=== PATIENT | male | born 1965 | race Caucasian/White ===

== ENCOUNTER 2021-04-10 12:05 | Outpatient (REF) | payer OTHER, SELFPAY ==
--- NOTE | ~2021-04-10 | XR_ITS ---
EXAMINATION: XR TIBIA AND FIBULA, LEFT CLINICAL INFORMATION: Injury lower leg COMPARISON: Radiographs left ankle and foot 07/15/2013. TECHNIQUE: AP and lateral views of the left tibia and fibula were obtained. FINDINGS: There is no fracture, dislocation, or destructive process. Bony mineralization is normal. There is no periostitis. No knee joint compartment narrowing. Ankle joint unremarkable. No visible ankle capsular effusion. XR/XR tibia fibula LT 2V IMPRESSION: No fracture, dislocation, or destructive process.
== END 2021-04-10 12:06 | disposition home or self-care (01) ==
LOC: HO.HMGCX 12:05
PROVIDERS: Visit Provider Physician Assistant Medical
DX: S89.92XA Unspecified injury of left lower leg, initial encounter (principal); X58.XXXA Exposure to other specified factors, initial encounter; Y93.9 Activity, unspecified; Y92.9 Unspecified place or not applicable; Y99.9 Unspecified external cause status
CPT/HCPCS: 73590

== ENCOUNTER 2024-08-10 10:56 | Outpatient (AMB) | payer OTHER, SELFPAY ==
--- NOTE | 2024-08-10 11:22 | AM.OFFWIN_ITS ---
Intake Vital Signs 08/10/24 11:24 Weight 160 lb BP 180/100 H Blood Pressure Location Lt brachial Position Sitting Pulse 71 Pulse Source Pulse Oximeter Temp 98.0 F Temp Source Oral Pulse Oximetry (%) 97 Oxygen Delivery Method Room Air Intake Visit Reasons: [employer]ABITAT [employer]SERVATION [employer]NER-high BP 200 over 110 Intake Note: Patient here for elevated BP Patient Tobacco Use Status: Current everyday Tobacco user Allergies Penicillins [PCN] Allergy (Unknown, Unverified 08/10/24 11:25) SWELLING/RASH Do you need a note to return to daycare/school/sports/work: No HPI HPI Comments History of Present Illness Details History of Present Illness - The patient is a 58-year-old male pres enting with elevated blood pressure. - Reports initial elevated blood pressur e during an urgent care visit at an urgent care down the street on July 11, post hospital discharge for a fall- related rib fracture. - Was started on amlodipine 5 mg daily; however, he continues to experience headaches, correlating them to uncontrolled hypertension. He went back for a follow up at the urgent care [place] the [place] but provider wasn't there and he felt insulted and dismissed by the doctor so he left. - Blood pressure remains elevated today at 180/100 despite taking 5mg amlodipine daily, includng this morning. - He has not been routinely checking his blood pressure at home since starting treatment. - Patient acknowledges ongoing smoking, contributing to hypertension, and has implemented a low salt diet recently. - No primary healthcare provider current ly, dissatisfaction reported with recent urgent care interaction. - He admits to constant headache, denies chest pain or dizziness or lightheadedness. Physical Exam General: Cooperative, healthy appearing, comfortable, no acute distress and well developed Orientation: Patient oriented x3 Limitations: No limitations Head: Normal to inspection Ears: Hearing grossly normal bilaterally Nose: Normal external nose present Face and sinus: Normal facial exam Eyes: Appearance normal, both eyes and all related structures Neck: Normal visual inspection and Yes full ROM Respiratory: Normal respiratory effort and able to speak in complete sentences. Skin: No rashes or lesions noted Neuro: Patient oriented x3 Extremities: Normal to inspection [facility] Social History Patient Tobacco Use Status: Current everyday Tobacco user Review of Systems Const All systems reviewed & are unremarkable except as noted in HPI and below Physical Exam Vital Signs: Last Vital Signs Temp 98.0 F 08/10/24 11:24 Pulse 71 08/10/24 11:24 BP 180/100 H 08/10/24 11:24 Pulse Ox 97 08/10/24 11:24 Oxygen Delivery Method Room Air 08/10/24 11:24 Assessment & Plan Assessment & Plan (1) Elevated blood pressure reading in office without diagnosis of hypertension: Code(s): R03.0 - Elevated blood-pressure reading, without diagnosis of hypertension Plan: Plan The patient's elevated blood pressure management involved the adjustment of his amlodipine dosage to 10 mg daily as a temporary measure and immediate monitoring of blood pressure using a home device. Emergency care (ED PAMELA, 911) was recommended to address the potential hypertensive crisis and stroke risks, kidney damage, etc. Patient refused to go to ED or to have me call 911; risks and benefits explained to pt at length, up to and including or permanent disability. Pt still declined emergency medical attention; AMA form signed. Lifestyle advice included smoking cessation and adherence to a low-sodium diet. The patient was scheduled for a follow-up appointment with a primary care provider to ensure continued oversight and management of hypertension. I have made an appt for him at [facility] on Aug 13 at 11:20AM with Ashly Acosta PA-C in [place], pt given information and was told to record BPs twice daily and bring to appt. Patient was informed and verbally consented to the use of an ambient scribe for clinic note documentation during this visit. Coding Level of Care Code Est Pt Level 4 (72862) Diagnoses Elevated blood pressure reading in office without diagnosis of hypertension R03.0
[2024-08-10 11:24] VITALS: BP 180/100; PULSE 71; TEMP 36.7; O2SAT 97
== END 2024-08-10 11:56 | disposition home or self-care (01) ==
PROVIDERS: PCP Internal Medicine; Visit Provider Physician Assistant
DX: R03.0 Elevated blood-pressure reading, without diagnosis of hypertension (principal)

== ENCOUNTER → 2024-08-13 11:02 | Outpatient (BNVA) | payer OTHER, SELFPAY | PROVIDERS: PCP Internal Medicine; Visit Provider Physician Assistant Medical | DX: I10 Essential (primary) hypertension (principal); Z79.899 Other long term (current) drug therapy | CPT/HCPCS: 96127 ==

== ENCOUNTER 2024-08-17 10:47 | Outpatient (REF) | payer OTHER, SELFPAY ==
[2024-08-17 13:12] LABS: MANUAL DIFF FLAG NO
[2024-08-17 13:26] LABS: Basophils Percent Auto 0.6 % (0-2); Eosinophils Absolute Auto 0.1 X10*3/uL (0.0-0.4); Eosinophils Percent Auto 1.4 % (0-4); Hematocrit 48.1 % (42.0-52.0); Hemoglobin 16.4 g/dl (14.0-18.0); Imm Gran Abs Auto 0.02 X10*3/uL (0.00-0.03); Imm Gran Pct Auto 0.3 % (0.0-0.4); Lymphocytes Absolute Auto 1.8 X10*3/uL (1.2-4.9); Lymphocytes Percent Auto 24.9 % (20-40); Mean Corpuscular HGB Conc 34.1 g/dl (31.0-36.0); Mean Corpuscular Hemoglobin 31.2 pg (27.0-33.0); Mean Corpuscular Volume 91.6 fL (80.0-98.0); Mean Platelet Volume 10.1 fL (9.4-12.4); Monocytes Absolute Auto 0.5 X10*3/uL (0.1-1.2); Monocytes Percent Auto 7.5 % (2-11); Neutrophils Absolute Auto 4.6 x10*3/uL (2.0-8.3); Neutrophils Percent Auto 65.3 % (45-73); Platelet Count 230 X10*3/uL (160-400); Red Blood Count 5.25 X10*6/uL (4.60-5.80); Red Cell Distribution Width 13.1 % (11.0-16.0)
[2024-08-17 13:38] LABS: Estimated Average Glucose 108 mg/dL; Hemoglobin A1C 147.8087 umol/L; Hemoglobin A1c % 5.4 % (<6.0); Total Hemoglobin (HGBA1C) 4193.6156 umol/L
[2024-08-17 13:41] LABS: Alanine Aminotransferase 31 U/L (0-40); Albumin Level 4.9 g/dL (3.5-5.0); Alkaline Phosphatase 77 U/L (39-117); Anion Gap 12 (12-20); Aspartate Amino Transferase 27 U/L (5-37); Bilirubin Direct 0.2 mg/dL (0.0-0.5); Bilirubin Total 0.8 mg/dL (0.0-1.0); Blood Urea Nitrogen 17 mg/dL (9-16); Calcium 9.5 mg/dL (8.4-10.2); Carbon Dioxide 28 mmol/L (22-29); Chloride 102 mmol/L (96-108); Cholesterol 178 mg/dL (<200); Estimated Glomerular Filt Rate > 60; Glucose Fasting 107 mg/dL (60-99); HDL Cholesterol 79 mg/dL (>40); LDL Cholesterol Calculated 89 mg/dL (<100); Magnesium 2.2 mg/dL (1.6-2.6); Potassium 4.3 mmol/L (3.3-5.1); Sodium 138 mmol/L (135-145); Total Protein 8.1 g/dL (6.5-8.0); Triglycerides 52 mg/dL (<150)
[2024-08-17 13:53] LABS: PSA,Total (Free>4and<10) 0.68 ng/mL (0.00-4.00)
[2024-08-17 14:07] LABS: Folate 5.7 ng/mL (> or = 4.0); Vitamin B12 426 pg/mL (200-900)
[2024-08-17 14:11] LABS: TSH reflex Free T4 0.63 uIU/mL (0.32-4.0); Vitamin D 25-OH Total 15.7 ng/mL (>30)
[2024-08-18 18:13] LABS: Lyme Abs Screen <0.90 index
[2024-08-23 13:08] LABS: Testosterone, Total 624 ng/dL (250-1100)
== END 2024-08-17 10:48 | disposition home or self-care (01) ==
LOC: HO.HMGCLDS 10:47
PROVIDERS: PCP Internal Medicine; Visit Provider Physician Assistant Medical
DX: Z00.00 Encounter for general adult medical examination without abnormal findings (principal); Z12.5 Encounter for screening for malignant neoplasm of prostate; Z13.1 Encounter for screening for diabetes mellitus; Z13.220 Encounter for screening for lipoid disorders; Z13.0 Encounter for screening for diseases of the blood and blood-forming organs and certain disorders involving the immune mechanism
CPT/HCPCS: 36415; 80053; 80061; 80076; 82248; 82306; 82607; 82746; 83036; 83735; 84153; 84403; 84443; 85025; 86617; 86618

== ENCOUNTER 2024-08-31 08:01 | Outpatient (AMB) | payer OTHER, SELFPAY ==
--- NOTE | 2024-08-31 08:21 | MHC.OFFVIS ---
Vital Signs 08/31/24 08:23 Height 5 ft 2 in Weight 146 lb BMI 26.7 Pulse 72 Pulse Source Pulse Oximeter Pulse Oximetry (%) 98 Oxygen Delivery Method Room Air Intake Visit Reasons: INP-Apnea Intake Note: Initiate workup for potential sleep apnea given historical breathing patterns during sleep, scheduling a sleep study for confirmation. No Sleep Study Scheduled Allergies Penicillins [PCN] Allergy (Unknown, Unverified 08/31/24 08:23) SWELLING/RASH HPI Comments Details: 58 year old male referred to us for sleep evaluation. Jun 2024, He fell down the stairs and into the bushes at his home, was taken to [facility], where he had a complete work up, and xrays showed he fractured rib #11. He is being monitored by his PCP for HTN, he was started on Amlodipine and HCTZ, pressures improved and daily headaches are now minimal. He goes to bed at 8pm, and wakes up at 10pm, midnight, then 2am, with 2-3 bathroom breaks. He c/o snoring, gasping and choking as if he is unable to catch his breath per his . He works in a [employer] center and feels unsteady on his feet. He says he has RLS, his legs bounce, he gets up to stretch them and moves all night long as he tosses and turns. He has numbness and tingling bilaterally which goes away with movement of the legs. His blood pressure has been elevated will have a check with his primary today, it was 128/89 this AM. He drinks 2-3 bottles of water a night, he has dry mouth. He has not smoked in 15 days now, and has been cutting back on his alcohol consumption. Will monitor for drop attacks, in June he fell down and hit a coffee table and sustained a laceration to the r. ear, his thinks he passed out for a few seconds, did not bite his tongue or experience incontinence. [facility] Medical History Heart rate fast Vitamin D deficiency Hypertension Episode of apnea General medical exam Surgical History Hx of appendectomy Social History Housing: Other (Mobile Home) Patient Tobacco Use Status: Current everyday Tobacco user e-Cigarette/Vaping Use: Never Used service: Yes ([employer] ) Current occupational status: employed Current occupational exposures/hazards: No Cognitive needs: No Hearing needs: No Vision needs: No Review of Systems Const All systems reviewed & are unremarkable except as noted in HPI and below Physical Exam Vital Signs: Last Vital Signs Pulse 72 08/31/24 08:23 Pulse Ox 98 08/31/24 08:23 Oxygen Delivery Method Room Air 08/31/24 08:23 BMI result Body Mass Index 26.7 Const General: cooperative, comfortable and no acute distress Nutritional Appearance: average body habitus Orientation/consciousness: patient oriented x3 HEENT Face and sinus: Yes normal facial exam and Yes face symmetric Throat: Yes other ([place] score of 4) Eyes Pupils: Equal, round and reactive pupils present Neck Neck: Yes full ROM and Yes supple Resp Effort & Inspection: normal respiratory effort and able to speak in complete sentences Neuro General: patient oriented x3 and moves all extremities Cranial nerves: Yes CN's II-XII intact bilaterally, Yes Facial sensation intact/muscles of mastication intact, Yes Equal, round and reactive pupils present, Yes Normal accommodation reflex present, Yes Bilaterally intact EOM present, Yes Nystagmus not present, Yes Normal facial strength present, Yes Midline tongue present, Yes Symmetric palate elevation present, Yes Ability to bilaterally rotate head present and Yes Ability to bilaterally elevate shoulders present Cognition (Neuro): normal cognition Gait exam (Neuro): Normal gait present Motor exam (neuro): 5/5 motor strength present throughout and Normal motor muscle tone present throughout Deep tendon reflexes (DTR's): Right triceps reflex intensity grade: 2+, Left triceps reflex intensity grade: 2+, Rt Biceps (C5, C6): 2+, Left biceps reflex intensity grade: 2+, Right brachioradialis reflex intensity grade: 2+, Left brachioradialis reflex intensity grade: 2+, Right patellar reflex intensity grade: 2+ and Left patellar reflex intensity grade: 2+ Psych Thought process: Normal thought process present Thought content: Normal thought content present Assessment & Plan Assessment & Plan (1) Restless leg syndrome, uncontrolled: Code(s): G25.81 - Restless legs syndrome Category: Medical (2) Loud snoring: Code(s): R06.83 - Snoring Category: Medical (3) Gasping for breath: Code(s): R06.89 - Other abnormalities of breathing Category: Medical (4) Fatigue due to sleep pattern disturbance: Code(s): R53.83 - Other fatigue; G47.9 - Sleep disorder, unspecified Category: Medical Plan Snoring and Gasping for breath, will evaluate with HST. RLS started 100-200mg PO Gabapentin at bedtime. Start 400mg PO Magnesium, and 200mg PO B6 at bedtime. Orders: Orders RT home sleep study Today G47.19 - Other hypersomnia Medications: New gabapentin Take 1-2 capsules daily at bedtime for Restless Legs. 100 mg PO BEDTIME 90 days 180 caps 3RF MDD 200mg G25.81 - Restless legs syndrome pyridoxine (vitamin B6) 250mg PO daily at bedtime for Restless leg syndrome. 250 mg PO DAILY 90 days 90 tabs 1RF Restless legs Syndrome MDD 250mg G25.81 - Restless legs syndrome magnesium oxide Take one capsule daily at night. 400 mg PO DAILY 90 days 90 caps 1RF Sleep MDD 400mg G47.9 - Sleep disorder, unspecified, R53.83 - Other fatigue Patient Instructions: Sleep Hygiene Provided: Sleep in a dark and cool environment, no devices in bed. Limit water intake 2 hours prior to bedtime, may use a humidifier as needed to increase moisture in the room. Smoking Cessation continue seeking assurance and support with counseling as needed. HTN, the number is modifiable RF for CV events is good blood pressure control. Monitor BP daily. Headache monitor frequency and severity of headaches, will address at next visit. Coding Level of Care Code New Pt Level 4 (83572) Diagnoses Restless leg syndrome, uncontrolled G25.81 Loud snoring R06.83 Gasping for breath R06.89 Fatigue due to sleep pattern disturbance R53.83; G47.9 Time Spent (min) 30 Comment Evalutation of Baseline Sleep Questionnaire Difficulty falling asleep: No Difficulty staying asleep?: Yes Number of arousals: 4-5 Snoring: Yes Witnessed apneas: Yes Gasping arousals: Yes Nocturia: Yes GERD: Yes Vivid dreams: Yes (His 3 month old son past in 1990.) Acting out dreams: No Abnormal behavior in sleep: Yes (sleep talking ) Abnormal movements in sleep: No Morning headaches: No Excessive daytime sleepiness: No Daytime naps: No Restless legs: Yes Hallucinations: No Sleep paralysis: No Drop attacks: Yes Sleep Study: Yes (18 years ago) CPAP: No
[2024-08-31 08:23] VITALS: PULSE 72; O2SAT 98; BMI 26.7
== END 2024-08-31 09:01 | disposition home or self-care (01) ==
PROVIDERS: PCP Internal Medicine; Visit Provider Physician Assistant Medical
DX: G25.81 Restless legs syndrome (principal); R06.83 Snoring; R06.89 Other abnormalities of breathing; R53.83 Other fatigue; G47.9 Sleep disorder, unspecified
CPT/HCPCS: 99204

== ENCOUNTER → 2024-08-31 08:01 | Outpatient (BNVA) | payer OTHER, SELFPAY | PROVIDERS: PCP Internal Medicine; Visit Provider Physician Assistant Medical ==

== ENCOUNTER 2024-08-31 12:36 | Outpatient (AMB) | payer OTHER, SELFPAY ==
--- NOTE | 2024-08-31 12:38 | MHC.PC.OV ---
Vital Signs 08/31/24 12:49 Height 5 ft 1.5 in Weight 143 lb BMI 26.6 BP 182/90 H Blood Pressure Location Lt brachial Pulse 81 Pulse Source Pulse Oximeter Temp 98.4 F Pulse Oximetry (%) 98 Intake Visit Reasons: 2 week follow up Intake Note: no other issues Allergies Penicillins [PCN] Allergy (Unknown, Verified 08/31/24 13:21) SWELLING/RASH Medication List - Last Reconciled 08/31/24 by Ashly Acosta PA-C amlodipine 10 mg PO DAILY cholecalciferol (vitamin D3) 1,250 mcg PO QWEEK 3 months gabapentin 100 mg PO BEDTIME 90 days MDD 200mg hydrochlorothiazide 50 mg PO DAILY ibuprofen mg PO Q6-8H ipratropium-albuterol 20-100 mcg/actuation (Combivent Respimat) 1 puff inhalation Q6H magnesium oxide 400 mg PO DAILY 90 days MDD 400mg nicotine (Nicoderm CQ) 1 patch transdermal DAILY pyridoxine (vitamin B6) 250 mg PO DAILY 90 days MDD 250mg Tobacco use date assessed: 08/13/24 Dental Screening Dental Screen Date: 08/13/24 [facility] Medical History COPD (chronic obstructive pulmonary disease) Heart rate fast Vitamin D deficiency Hypertension Episode of apnea General medical exam Surgical History Hx of appendectomy Social History Housing: Other (Mobile Home) Patient Tobacco Use Status: Current everyday Tobacco user e-Cigarette/Vaping Use: Never Used service: Yes ([employer] ) Current occupational status: employed Current occupational exposures/hazards: No Cognitive needs: No Hearing needs: No Vision needs: No Questionnaire Thrive Questionnaire Date Thrive assessed: 08/13/24 RYAN-7 AMB Questionnaire RYAN-7 Date RYAN - 7 assessed: 08/13/24 Source: Developed by Drs. Jamel Tipton, Moira Mendoza, Pedro Pablo Stinson and colleagues, with an educational maddie from [employer]. Physical exam (Primary Care) Vital Signs: Last Vital Signs Temp 98.4 F 08/31/24 12:49 Pulse 81 08/31/24 12:49 BP 182/90 H 08/31/24 12:49 Pulse Ox 98 08/31/24 12:49 Care Plan Goal for BP management: 130/80 patient currently on amlodipine 10 mg, hydrochlorothiazide 25 mg will increase hydrochlorothiazide to 50 mg and have patient return in 1 month BMI result Body Mass Index 26.6 BMI Assessment/Plan discussion: High BMI High, discussed plan: lifestyle, weight reduction, dietary, physical activity and alcohol moderation Tobacco/Smoking Status: Tobacco use Status Tobacco use date assessed 08/13/24 08/31/24 12:39 Patient Tobacco Use Status Current everyday Tobacco 08/31/24 12:39 e-Cigarette/Vaping Use Never Used 08/31/24 12:39 Thrive Assessment: Date of Thrive Assessment Date Thrive assessed 08/13/24 08/31/24 12:39 Coding Level of Care Code Est Pt Level 4 (21492) Complex EM visit Add On G2211 Diagnoses COPD (chronic obstructive pulmonary disease) J44.9 Hypertension I10 Vitamin D deficiency E55.9 Assessment & Plan Assessment & Plan (1) COPD (chronic obstructive pulmonary disease): Code(s): J44.9 - Chronic obstructive pulmonary disease, unspecified Category: Medical Plan: Will start patient on Combivant inhaler for COPD. Patient will be referred to pulmonology. Patient to continue utilizing nicotine patches for smoking cessation. Condition is chronic and stable continue to monitor. (2) Hypertension: Code(s): I10 - Essential (primary) hypertension Category: Medical Plan: Blood pressure elevated at 182/90. Patient currently on amlodipine 10 mg, lisinopril 25 mg. Taking as prescribed. Go for blood pressure is 130/80. Will increase hydrochlorothiazide to 50 mg and have patient return in 1 month for further evaluation management with diarrhea blood pressure checks. Condition is chronic and stable continue to monitor. (3) Vitamin D deficiency: Code(s): E55.9 - Vitamin D deficiency, unspecified Category: Medical Plan: Patient to continue vitamin-D supplement weekly. Condition is chronic and stable continue to monitor. Plan Plan - Increase hydrochlorothiazide dosage to 50 mg daily for enhanced blood pressure control. - Continue amlodipine 10 mg for hypertension. - Initiate inhaled therapy KARIN plus LAMA) to alleviate COPD symptoms. - Advise patient to acquire a pulse oximeter for regular COPD monitoring. - Recommend smoking cessation continuation, while addressing secondhand exposure at home. - Follow up with pulmonology for further COPD management. - Gabastan, vitamin B unspecified, and GERD therapy to be continued as prescribed by sleep specialist. Orders: Referrals Pulmonology Referral J44.9 - Chronic obstructive pulmonary disease, unspecified Medications: New ipratropium-albuterol 20-100 mcg/actuation (Combivent Respimat) 1 puff inhalation Q6H 4 grams 1RF Changed From hydrochlorothiazide 25 mg PO DAILY 90 tabs 1RF To hydrochlorothiazide 50 mg PO DAILY 90 tabs 1RF Patient Instructions: Patient Instructions - Increase hydrochlorothiazide to 50 mg daily. - Continue taking amlodipine 10 mg as prescribed. - Use the prescribed combination inhaler every six hours if needed for breathing problems. - Monitor blood pressure regularly and report significant changes. - Purchase a pulse oximeter to track oxygen levels, especially if encountering shortness of breath. - Stay committed to smoking cessation and minimize exposure to secondhand smoke whenever possible. - Follow up with the fudger as advised. - Keep a log of blood pressures and breathing symptoms to discuss at the next follow-up. Scribe Plan - Not visible on output: History of Present Illness The patient is a 58-year-old male presenting for follow-up for blood pressure and COPD. Patient has a history of hypertension, COPD, and progress check on nicotine cessation efforts. The patient reports significant fluctuation in blood pressure levels, initially measuring 130/89 mmHg in the morning, but it increased to 180 mmHg later in the day. Last week, on increased hydrochlorothiazide as instructed, blood pressure showed an improving trend. The patient regularly experiences headaches when blood pressure is elevated but has not encountered this recently until today. The patient has been adhering to antihypertensive medication but remains concerned about blood pressure stability during nicotine cessation. The patient has a past diagnosis of COPD, experiencing chest tightness and wheezing. Smoky environment exposure from the spouse's smoking is noted to potentially exacerbate symptoms. History of 40-year smoking habit recently ceased for 10 days is significant, with smoked cigarettes used as a stress response. The patient denies requiring pulmonary consultation since asthma management 40 years ago. The patient attended a recent sleep study appointment, receiving gabastan, vitamin B, and treatment for GERD. The patient expresses concerns about Restless Legs Syndrome and past negative experiences with nightmares from gabastan. The patient, during a prior illness, experienced symptoms resembling a stomach flu and chest cold combination potentially linked to workplace engagement. Additionally, oxygen levels remained satisfactory. Social History - Employment: Engaged in an environment with shared equipment contributing to illness transmission. - Family: with a spouse who is currently smoking; this impacts patient's COPD and cessation efforts. - Substance Use: Recently quit a long-term smoking habit. Occasionally uses cannabis. - Housing: Exposure to secondhand smoke due to spouse smoking in the home. - Functional Status: Acknowledges stress management challenges post-cessation of smoking. Review of Systems - Constitutional: Denies dizziness. - Respiratory: Reports shortness of breath related to COPD. - Neurological: Reports chronic Restless Legs Syndrome. Physical Exam Appearance: Alert. Oriented X3. No acute distress. Head: Normal external exam. Normocephalic. Atraumatic. Eyes: Pupils are equal, round, and reactive to light. Extraocular movements intact. Conjunctiva and sclera normal. Eyelids normal. Ears: External auditory canal normal. Tympanic membranes normal. Throat: Pharynx normal. Uvula midline. Moist mucous membranes. Neck: Normal inspection. Neck supple. Full range of motion. No adenopathy. Thyroid Normal. No meningeal signs. No neck mass noted. Cardiovascular: Normal heart rate and rhythm. Heart sound normal. No murmurs noted. Pulses normal throughout. Respiratory: Tightness noted. Breath sounds indicate wheezing. No respiratory distress. Painless inspiration. Chest nontender. No accessory muscle usage noted or decreased air movement noted. Back: Full range of motion noted. Skin: Skin warm and dry. Normal skin color. Normal skin turgor. No rashes/lesions/lacerations noted. Extremities: No lower extremity edema. Extremities exhibit normal range of motion. Extremities nontender. Neuro: Oriented X 3. No motor deficit. No sensory deficit. Reflexes normal. Results - Labs: Recently completed fasting blood work. Results were overall satisfactory with a note on low Vitamin D levels. - Sleep Study: Revealed issues related to Restless Leg Syndrome. Patient was informed and verbally consented to the use of an ambient scribe for clinic note documentation during this visit. Discussion Notes I discussed the significance of maintaining blood pressure management through the adjusted antihypertensive regimen and consistent monitoring, emphasizing the relationship between stress and hypertension. We agreed on the continuation of breath function management for COPD, introducing a combination inhaler for better lung support. I advised on purchasing a pulse oximeter for home use, stressing its importance in timely detection of hypoxia, especially considering exposure to secondhand smoke from the patient's spouse. Smoking cessation benefits and challenges were reviewed, acknowledging the patient's commendable progress despite environmental barriers. Follow-up pulmonology consultation was recommended to target the progression of COPD and potential interventions for symptoms exacerbated by ongoing exposure.
[2024-08-31 12:49] VITALS: BP 182/90; PULSE 81; TEMP 36.9; O2SAT 98; BMI 26.6
== END 2024-08-31 13:24 | disposition home or self-care (01) ==
LOC: HO.HMCSH 12:36
PROVIDERS: PCP Internal Medicine; Visit Provider Physician Assistant Medical
DX: J44.9 Chronic obstructive pulmonary disease, unspecified (principal); I10 Essential (primary) hypertension; E55.9 Vitamin D deficiency, unspecified